=== PATIENT | female | born 1975 | race Caucasian/White ===

== ENCOUNTER 2024-11-19 08:46 | Emergency (ER) | payer OTHER, SELFPAY ==
[2024-11-19 09:03] VITALS: BP 130/78; PULSE 80; RESP 24; TEMP 36.3; O2SAT 97; BMI 24.6
--- NOTE | 2024-11-19 09:31 | ED.HA ---
HPI - Headache General Date Seen: 11/19/24 Chief Complaint: Headache/Migraine Stated Complaint: headache- nausea Time Seen by Provider: 11/19/24 09:20 Source: patient Mode of arrival: ambulatory Limitations: no limitations History of Present Illness HPI Narrative: Patient is a 49-year-old female presenting to the emergency department for a headache. She states the headache has been going on for the past few days. She feels like it is a tight band around her head. States she has had headaches like this in the past but has been several years. States it was so bad she had to leave work which she never does. Has had some photophobia. Has not noticed any tearing or rhinorrhea. Has not noticed any focal neurological issues. Denies lightheadedness, dizziness, chest pain, shortness of breath, weakness, numbness, abdominal pain. Has noted some nausea. Feels like symptoms are getting worse despite taking Tylenol and ibuprofen the home. No other concerns noted Related Data Home Medications ?Medication ?Instructions ?Recorded ?Confirmed norethindrone acetate 1 mg-ethinyl 1 tab PO DAILY 11/19/24 11/19/24 estradiol 20 mcg tablet (Junel) Previous Rx's ?Medication ?Instructions ?Recorded ondansetron 4 mg disintegrating 4 mg PO Q6H #20 tabs 11/19/24 tablet Allergies Allergy/AdvReac Type Severity Reaction Status Date / Time No Known Drug Allergies Allergy Verified 11/19/24 09:09 Review of Systems Status of ROS: Reports: 10 or more systems reviewed and unremarkable except as noted in History and below PFS PFS Social History Smoking Status: Never smoker How often do you have a drink containing alcohol: never AUDIT-C Alcohol total score: 0 Non-prescribed substance use: denies use Exam Narrative: Exam Narrative: Const: Well-nourished, Well-developed, in moderate distress Eyes: PERRL, no conjunctival injection, and symmetrical lids HENT: Atraumatic external nose and ears. Moist mucous membranes. Neck: Symmetric, trachea midline, No thyromegaly. CVS: RRR, No murmurs or gallops. Peripheral pulses 2+ and equal in all extremities RESP: Unlabored respiratory effort. Clear to auscultation bilaterally. GI: Nontender/Nondistended, No rebound or guarding. MSK:Extremities w/o deformity, Normal Active ROM Skin: Warm, Dry. No rashes or lesions. Neuro: Normal Muscle tone, Cranial nerves 2-12 grossly intact, normal lgcn-hg-sqxg, normal pelzoi-bc-smtm, normal gait, normal strength 5/5 upper lower extremities bilaterally, normal sensation upper and lower extremities bilaterally, normal rapid alternating movements. Psych: Awake, Alert, & Oriented x3. Appropriate mood and affect. Const: Vital Signs, click to edit/add: Vital Signs - 24 hr 11/19/24 09:03 Temperature 97.3 F L Pulse Rate [Pulse Oximeter] 80 Respiratory Rate 24 Blood Pressure [Ri t Upper Arm] 130/78 Pulse Oximetry 97 Oxygen Delivery Me thod Room Air Course Vital Signs Vital signs: Initial Vital Signs Temperature 97.3 F L 11/19/24 09:03 Temperature Source Temporal Artery Scan 11/19/24 09:03 Pulse Rate 80 11/19/24 09:03 Respiratory Rate 24 11/19/24 09:03 Blood Pressure 130/78 11/19/24 09:03 Blood Pressure Mean 95 11/19/24 09:03 Blood Pressure Position Sitting 11/19/24 09:03 Pulse Oximetry 97 11/19/24 09:03 Oxygen Delivery Method Room Air 11/19/24 09:03 Vital Signs Temperature 97.3 F L 11/19/24 09:03 Pulse Rate 80 11/19/24 09:03 Respiratory Rate 24 11/19/24 09:03 Blood Pressure 130/78 11/19/24 09:03 Pulse Oximetry 97 11/19/24 09:03 Oxygen Delivery Method Room Air 11/19/24 09:03 Temperature 97.3 F L 11/19/24 09:03 Pulse Rate 80 11/19/24 09:03 Respiratory Rate 24 11/19/24 09:03 Blood Pressure 130/78 11/19/24 09:03 Pulse Oximetry 97 11/19/24 09:03 Oxygen Delivery Method Room Air 11/19/24 09:03 Medications Administered Medications: Discontinued Medications Generic Name Dose Route Start Last Admin Trade Name Freq PRN Reason Stop Dose Admin Diphenhydramine HCl 25 mg 11/19/24 09:25 11/19/24 09:57 Diphenhydramine 50 Mg/Ml Inj IVP 11/19/24 09:26 25 mg ONCE ONE Administration Lactated Ringer's 1,000 mls @ 1,000 mls/hr 11/19/24 09:25 11/19/24 10:01 Lactated Ringers 1000 Ml IV 11/19/24 10:24 1,000 mls/hr .Q1H ONE Administration Ketorolac Tromethamine 15 mg 11/19/24 09:25 11/19/24 09:53 Ketorolac 15 Mg/Ml Inj IVP 11/19/24 09:26 15 mg ONCE ONE Administration Metoclopramide HCl 10 mg 11/19/24 09:25 11/19/24 09:55 Metoclopramide Hcl 5 Mg/Ml Inj IVP 11/19/24 09:26 10 mg ONCE ONE Administration MDM - Headache MDM Narrative Medical decision making narrative: Patient is a 49-year-old female presenting for headache. She has had headaches like this before but it has been awhile. Was a gradual-onset headache. My concern for subarachnoid hemorrhage is very low. At this time intracranial masses seems unlikely and I will hold off on doing head CT was start by giving her a migraine cocktail including fluids, Reglan, Toradol, Benadryl. She is agreeable to this plan. Patient is feeling much better after the migraine cocktail. She feels comfortable for discharge. She will be discharged at this time. Discharge Plan Discharge Clinical Impression: Headache Qualifiers: Headache type: unspecified Headache chronicity pattern: unspecified pattern Intractability: not intractable Qualified Code(s): R51.9 - Headache, unspecified Patient Disposition: Home, Self-Care Condition: Improved Instructions: Acute Headache (DC) Additional Instructions: Continue to use Tylenol ibuprofen as needed at home. Take the Zofran as needed for nausea. Make sure to stay well hydrated. Return to emergency department for new or worsening symptoms. Prescriptions: New ondansetron 4 mg tablet,disintegrating 4 mg PO Q6H Qty: 20 0RF No Action norethindrone ac-eth estradiol [08/26 (21)] 1-20 mg-mcg tablet 1 tab PO DAILY Follow Up/Referrals: Provider,Not a Local [Primary Care Provider] - Stand Alone Forms: [employer] Info Instructions
[2024-11-19] MEDS: KETOROLAC 15 MG/ML inj IVP (09:53)
[2024-11-19] MEDS: METOCLOPRAMIDE HCL 5 MG/ML INJ 10 MG IVP (09:55)
[2024-11-19] MEDS: diphenhydrAMINE 50 MG/ML inj 25 MG IVP (09:57)
[2024-11-19] MEDS: LACTATED RINGERS 1000 ML 1,000 ML IV (10:01)
--- OUTSIDE RECORDS SUMMARY | 2024-11-19 10:46 | XMS_ITS | Clinical Summary ---
Author Organization [facility] Address [address] [place] [address]. [place] [address] Care Team Providers Care Cdl Bulk Driver Name Role Phone Elisa Mandel PA-C Unavailable Maritza Mai MD Primary Care Provider + Allergies No known active allergies Medications gabapentin (NEURONTIN) 300 MG capsule Take 300 mg by mouth At Bedtime For hot flashes 02/08/2023 Active ondansetron (ZOFRAN ODT) 4 MG ODT tab Take 1 tablet (4 mg) by mouth every 8 hours as needed for nausea 10 tablet 04/29/2023 Active multivitamin w/minerals (MULTI-VITAMIN) tablet Take 1 tablet by mouth daily Active Active Problems Problem Noted Date Diagnosed Date SBO (small bowel obstruction) 03/28/2015 Family History Medical History Relation Comments Colon Cancer Maternal Grandmother Thyroid Disease Mother Colon Cancer Paternal Grandmother Relation Status Comments Maternal Grandmother Mother Paternal Grandmother Social History Tobacco Use Types Packs/Day Years Used Date Smoking Tobacco: Never Smokeless Tobacco: Never Tobacco Cessation:Counseling Given: Not Answered Alcohol Use Standard Drinks/Week Comments No 0 (1 standard drink = 0.6 oz pur e alcohol) Adolescent Education Answer Date Record ed Getting School Help Needed Not on file 04/29 Comments No Sex and Gender Information Value Date Recorded Sex Assigned at Female 05/19/2024 2:43 PM CDT Legal Sex Female 4:38 AM SIX SIGMA PROJECT MANAGER Gender Identity Female 05/19/2024 2:43 PM CDT Sexual Orientation Straight 05/19/2024 2: 43 PM CDT Last Filed Vital Signs Vital Sign Reading Time Taken Comments Blood Pressure 110/79 06/16/2023 4:05 PM SIX SIGMA PROJECT MANAGER Pulse 65 06/16/2023 4:05 PM SIX SIGMA PROJECT MANAGER Temperature 36.6 C (97.8 F) 06/16/2023 4:05 PM SIX SIGMA PROJECT MANAGER Respiratory Rate 15 06/16/2023 4:05 PM SIX SIGMA PROJECT MANAGER Oxygen Saturation 99% 06/16/2023 4:05 PM SIX SIGMA PROJECT MANAGER Inhaled Oxygen Concentration - - Weight 58.2 kg (128 lb 3.2 oz) 06/16/2023 12:38 PM SIX SIGMA PROJECT MANAGER Height 154.9 cm (5' 0.98) 06/16/2023 12:[address] Body Mass Index 24.24 06/16/2023 12:38 PM SIX SIGMA PROJECT MANAGER Plan of Treatment Health Maintenance Due Date Last Done Comments ANNUAL REVIEW OF HM ORDERS 1975 CT COLONOGRAPHY 1975 sDNA (Cologuard) 1975 COLONOSCOPY 1985 HIV SCREENING 1990 HEPATITIS C SCREENING 1993 FIT 06/08/2009 06/08/2008 COLORECTAL CANCER SCREENING 06/27/2013 FLEX SIG 06/27/2013 06/27/2008 LIPID 2015 YEARLY PREVENTIVE VISIT 12/23/2023 12/22/2022 COVID-19 Vaccine ( season) 2024 03/29/2021, 03/08/2021 INFLUENZA VACCINE (#1) 2024 PHQ-2 (once per calendar year) 2024 MAMMO SCREENING 05/10/2025 05/10/2023, 11/2022, 02/16/2022 ZOSTER IMMUNIZATION (1 of 2) 2025 PAP 04/13/2026 04/13/2023, 0902/2023, 04/13/2023 DIABETES SCREENING 04/29/2026 04/29/2023, 1 08/28/2016, 05/29/2015, Additional history exists ADVANCE CARE PLANNING 06/22/2028 06/22/2023 DTAP/TDAP/TD IMMUNIZATION (4 - Td or Tdap) 10/07/2031 10/06/2021, 10/30/2002, 10/20/1998, Additional history exists HEPATITIS B IMMUNIZATION Completed 007, 06/28/2006, 05/26/2006 HPV IMMUNIZATION Aged Out No longer e ligible based on patient's age to complete this topic MENINGITIS IMMUNIZATION Aged Out No l onger eligible based on patient's age to complete this topic Pneumococcal Vaccine: Pediatrics (0 to 5 Years) and At-Risk Patients (6 to 49 Years) Aged Out No longer eligible based on patient's age to complete this topic Procedures Procedure Name Priority Date/Time Associated Diagnosis Comments BASIC METABOLIC PANEL STAT 04/29/2023 4:13 PM CDT FLEXIBLE SIGMOIDOSCOPY Routine 8 12:55 PM SIX SIGMA PROJECT MANAGER OCCULT BLOOD STOOL STAT 06/08/2008 3: 59 AM SIX SIGMA PROJECT MANAGER from Last 3 Months or Most Recently Relevant to Health Maintenance Results * (ABNORMAL) Basic metabolic panel (04/29/2023 4:13 PM CDT) Sodium 139 136 - 145 mmol/L 04/29/2023 5:35 PM CDT [facility] Potassium 4.5 3.4 - 5.3 mmol/L 04/29/2023 5:35 PM CDT [facility] Chloride 103 98 - 107 mmol/L 04/29/2023 5:35 PM CDT [facility] Carbon Dioxide (CO2) 23 22 - 29 mmol/L 04/29/2023 5:35 PM CDT [facility] Anion Gap 13 7 - 15 mmol/L 04/29/2023 5:35 PM CDT [facility] Urea Nitrogen 12.9 6.0 - 20.0 mg/dL 04/29/2023 5:35 PM CDT [facility] Creatinine 0.72 0.51 - 0.95 mg/dL 04/29/2023 5:35 PM CDT [facility] Calcium 9.5 8.6 - 10.0 mg/dL 04/29/2023 5:35 PM CDT [facility] Glucose 178(H) 70 - 99 mg/dL 04/29/2023 5:35 PM CDT [facility] GFR Estimate >90 >60 mL/min/1.7 3m2 04/29/2023 5:35 PM CDT [facility] Blood STRUCTURE OF RIGHT UPPER LIMB / Unknown Venipuncture / Unknown 04/29/2023 4:13 PM CDT 04/29/2023 4:16 PM CDT us Lenore Hawley DO LAB - BLOOD ORDERABLE S Final Result [facility] [address] [facility] (Main level, no room number) [place] [address], [facility] [phone] * FLEXIBLE SIGMOIDOSCOPY (06/27/2008 12:55 PM SIX SIGMA PROJECT MANAGER) Flex Sig Endoscopy Patient Name: Ava Gibson Gender: F Procedure Date: 06/27/2008 12:55 PM Date of : 1975 Age: 32 Admit Type: Inpatient Attending MD: Esau Arceo MD Procedure: Flexible Sigmoidoscopy Indications: Established chronic ulcerative proctosigmoiditis Providers: Esau Arceo MD Referring MD: Billy Baires MD Medicines: Fentanyl (Sublimaze) IVP 100 mcgs, Versed (Midazolam) IVP 4 mgs Complications: No immediate complications Procedure: - Prior to the procedure, a History and Physical was performed, and patient medication allergies were reviewed. The patient is competent. The risks and benefits of the procedure and the sedation options and risks were discussed with the patient. All questions were answered and informed consent was obtained. Patient identification and proposed procedure were verified by the physician in the procedure room. Mental Status Examination: alert and oriented. Airway Examination: normal oropharyngeal airway and neck mobility. Respiratory Examination: clear to auscultation. CV Examination: normal. Prophylactic Antibiotics: The patient does not require prophylactic antibiotics. Prior Anticoagulants: The patient has taken no previous anticoagulant or antiplatelet agents. ASA Grade Assessment: II - A patient with mild systemic disease. After reviewing the risks and benefits, the patient was deemed in satisfactory condition to undergo the procedure. The anesthesia plan was to use moderate sedation / analgesia (conscious sedation). Immediately prior to administration of medications, the patient was re-assessed for adequacy to receive sedatives. The heart rate, respiratory rate, oxygen saturations, blood pressure, adequacy of pulmonary ventilation, and response to care were monitored throughout the procedure. The physical status of the patient was re-assessed after the procedure. After obtaining informed consent, the scope was passed under direct vision. The [id number] #[id number] was introduced through the anus and advanced to the sigmoid colon. The flexible sigmoidoscopy was accomplished without difficulty. The patient tolerated the procedure well. The quality of the prep was good. Findings: Diffuse, continuous moderately active colitis (erythema, friability) with only a few discrete areas of ulceration were found as far as the scope was advanced into the sigmoid colon. This area was biopsied with a cold forceps for histology and to help evaluate for CMV colitis. Impression: - Erythematous mucosa from rectum to sigmoid colon. - Known left-sided ulcerative colitis. Esau Arceo M.D. _ Esau Arceo MD Signed Date: 06/27/2008 1:26 PM Number of Addenda: 0 Note initiated on 06/27/2008 12:55 PM RADIOLOGY RESULTS Flex Sig RADIOLOGY RESULTS 06/27/2008 12:5 5 PM SIX SIGMA PROJECT MANAGER us Billy Baires DO PROCEDURES Final Resu lt RADIOLOGY RESULTS * Occult blood stool (06/08/2008 3:59 AM SIX SIGMA PROJECT MANAGER) Occult Blood Negative NEG MISYS 06/08/2008 3:59 AM SIX SIGMA PROJECT MANAGER 06/08/2008 3:51 AM SIX SIGMA PROJECT MANAGER us Jin Boyle MD LAB - STOOLS ORDERABLES Final Result [facility] from Last 3 Months or Most Recently Relevant to Health Maintenance Insurance [facility] CHOICE [facility] CHO[facility] Advance Directives For more information, please contact: [phone] Documents on File Type Date Recorded Patient Chronograph Operator Expl anation Advance Directives and Living Will 06/22/2023 Health Care Directiv e 11/23/2022 * Full Code (Latest Code Status on File) Date Activated Date Inactivated Comments 03/28/2015 2:52 PM 12/18/2019 12:49 PM * Full Code Date Activated Date Inactivated Comments 03/28/2015 12:07 AM 03/28/2015 2:52 PM Healthcare Agents on File Name Relationship Healthcare Agent Relationship Communication David Gibson Spouse Health Care Agent [email or web address] Elisa Fernandes Cousin First Alternate Health Care Agent Care Teams Cdl Bulk Driver Relationship Specialty [place] [address] [place] [address] PCP - General Family Medicine 04/29/23 Elisa Mandel PA-C [address] [facility] [place] [address] Physician Teletypewriter Operator Dermatology 11/15/21
--- OUTSIDE RECORDS SUMMARY | 2024-11-19 10:46 | XMS_ITS | Encounter Summary ---
Author Organization [facility] Address [address] [place] [address]. [place] [address] Care Team Providers Care Systems Software Manager Name Role Phone Elisa Mandel PA-C Unavailable [phone] Maritza Mai MD Primary Care Provider + Encounter Details Date Type Department Care Team (Late st Contact Info) Description 05/19/2024 MyC Medical Advice Initial Department Marycruz Tyson Social History Tobacco Use Types Packs/Day Years Used Date Smoking Tobacco: Never Smokeless Tobacco: Never Alcohol Use Standard Drinks/Week Comments No 0 (1 standard drink = 0.6 oz pur e alcohol) Adolescent Education Answer Date Record ed Getting School Help Needed Not on file 04/29 Comments No Sex and Gender Information Value Date Recorded Sex Assigned at Female 05/19/2024 2:43 PM CDT Legal Sex Female 4:38 AM AVIATION ELECTRONIC WARFARE OPERATOR Gender Identity Female 05/19/2024 2:43 PM CDT Sexual Orientation Straight 05/19/2024 2: 43 PM CDT documented as of this encounter Plan of Treatment Not on file documented as of this encounter Visit Diagnoses Not on filedocumented in this encounter Care Teams Systems Software Manager Relationship Specialty [place] [address] [place] [address] PCP - General Family Medicine 04/29/23 Elisa Mandel PA-C [address] [place] [address] [address] [facility] [place] [address] Physician Rental Car Deliverer Dermatology 11/15/21 documented as of this encounter
--- OUTSIDE RECORDS SUMMARY | 2024-11-19 10:46 | XMS_ITS | Encounter Summary ---
Author Organization [facility] Address [address] [place] [address]. [place] [address] Care Team Providers Care Regulatory Compliance Coordinator Name Role Phone Elisa Mandel PA-C Unavailable [...] PM CDT Legal Sex Female 4:38 AM BULLET SWAGING MACHINE OPERATOR Gender Identity Female 05/19/2024 2:43 PM CDT Sexual Orientation Straight 05/19/2024 2: 43 PM CDT documented as of this encounter Plan of Treatment Not on file documented as of this encounter Visit Diagnoses Not on filedocumented in this encounter Care Teams Regulatory Compliance Coordinator Relationship Specialty [place] [address] [place] [address] PCP - General Family Medicine 04/29/23 Elisa Mandel PA-C [address] [place] [address] [address] [facility] [place] [address] Physician Machine Heddle Cleaner Dermatology 11/15/21 documented as of this encounter
--- OUTSIDE RECORDS SUMMARY | 2024-11-19 10:46 | XMS_ITS | Clinical Summary ---
Author Organization [facility] Address [address] [place] [address] Care Team Providers Care Crane Hooker Name Role Phone Maritza Mai MD Primary Care Provider + [phone] Source Comments You are receiving this document as you are listed as the primary care provider,follow-up provider, or the patient has been referred to you for consultation.This is in compliance with the Medicare and[facility] EHR Incentive Program,which states Providers who transition their patient to another setting of careor provider of care or refers their patient to another provider of care shouldprovide summary care record for each transition of care or referral. [facility] Allergies No known active allergies Medications multivitamin with minerals (THERA M PLUS) tablet Take 1 Tablet by mouth daily. Active norethindrone-et hinyl estradiol (LOESTRIN) 1mg-20mcg tablet Take 1 Tablet by mouth daily. 84 Tablet 3 05/29/2024 5 Active Active Problems Problem Noted Date Diagnosed Date Hot flashes 05/29/2024 Cervical high risk human pap illomavirus (HPV) DNA test positive 12/22/2022 History of ulcerative colitis 10/06/2021 Overview (10/06/2021): hx colectomy H/O total colectomy 10/06/2021 Fibroid tumor 10/05/2018 Overview (12/22/2022): Last U/S 04/2022 -- stable. SBO (small bowel obstruction) 03/28/2015 Resolved Problems Problem Noted Date Diagnosed Date Resolved Date Female infertility 04/28/2010 Overview (03/29/2017): Infertility Female Attention to colostomy 03/02/200910/06 Overview (03/29/2017): Colostomy Closure Takedown s/p Ulcerative (chronic) proctitis 02/15/2005 10/06/2021 Overview (03/29/2017): Colitis Ulcerative Proctitis Migraine without aura 02/15/20052021 Overview (03/29/2017): Migraine Common Varicella 02/15/2005 09/30/2017 Overview (03/29/2017): LW Onset: childhood ; Varicella Zoster Immunizations Immunization Administration Dates Next Due HepA-HepB ([place], 18+ yrs) 11/28/2006,06/28/20 06,05/26/2006 MMR 10/20/1998,03/18/1993 Pfizer Monovalent 12+ Purple Top 03/29/2021,08/0 09/2020 Td 10/30/2002,10/20/1998,03/18/1993 Tdap 10/06/2021 Family History Medical History Relation Name Comments Heart Disease Father Chaparro of heart attack shoveling snow age 62 Cancer Mother saige paranoid cancer age 59 Alcohol Abuse Brother Cancer, Breast Maternal Aunt 1 Caprice br ca 50's Cancer, Breast Maternal Aunt 2 Pat br ca 50's Cancer Maternal Grandmother Earlene had col on cancer Cataract Maternal Grandmother Earlene Heart Disease Paternal Grandfather Justo o f congestive heart failure age 75 Cancer Paternal Grandmother Raquel had col on cancer Cataract Paternal Grandmother Raquel Cancer Paternal Uncle 1 Ludwig of sto mach cancer in his 40s Kidney/Bladder Disease Paternal Uncle 2 Madhav b ladder cancer now has a bag Kidney/Bladder Disease Paternal Uncle 3 cheryle b ladder cancer Relation Name Status Comments Father Chaparro Mother saige Brother Alive Maternal Aunt 1 Caprice Alive Maternal Aunt 2 Pat Alive Maternal Grandmother Earlene Paternal Grandfather Justo Paternal Grandmother Raquel Paternal Uncle 1 Ludwig Paternal Uncle 2 Madhav Paternal Uncle 3 cheryle Social History Tobacco Use Types Packs/Day Years Used Date Smoking Tobacco: Never Smokeless Tobacco: Never Tobacco Cessation:Counseling Given: Not Answered Alcohol Use Standard Drinks/Week Comments No 0 (1 standard drink = 0.6 oz pur e alcohol) PHQ-2 Answer Date Recorded PHQ-2 Score 0 02/21/2024 Financial Resource Strain Answer Date R ecorded Is it hard for you to pay fo r the very basics like food, housing, medical care or heating? No 02/18/2024 Food Insecurity Answer Date Recorded Does your food run out before you have the money to buy more? No 02/18/2024 Transportation Needs Answer Date Record ed Does a lack of transportatio n keep you from your medical appointments or from getting your medications? No 024 Comments No Sex and Gender Information Value Date Recorded Sex Assigned at Female 08/28/2021 4:43 PM MAGNETIC LOCATER Legal Sex Female 9:34 AM CDT Gender Identity Female 08/28/2021 4:43 PM MAGNETIC LOCATER Sexual Orientation Straight 08/28/2021 4: 43 PM MAGNETIC LOCATER Last Filed Vital Signs Vital Sign Reading Time Taken Comments Blood Pressure 102/72 05/30/2024 8:45 AM CDT Pulse 77 05/30/2024 8:45 AM CDT Temperature 36.6 C (97.9 F) 09/02/2010 3:16 PM MAGNETIC LOCATER ORAL C: 36.6 C Respiratory Rate - - Oxygen Saturation - - Inhaled Oxygen Concentration - - Weight 57.5 kg (126 lb 12.8 oz) 05/30/2024 8:45 AM CDT Height 155.6 cm (5' 1.26) 05/30/2024 8 :45 AM CDT Body Mass Index 23.76 05/30/2024 8:45 AM CDT Plan of Treatment Health Maintenance Due Date Last Done Comments COVID-19 Vaccine ( season) 2024 03/29/2021, 03/08/2021 Influenza (#1) 2024 Adult Preventive Visit 02/20/2025 , 12/22/2022, 10/06/2021 Prediabetes: HGBA1C 02/20/2025 02/21/2024, Mammogram 05/13/2025 05/13/2024, 11/2022, 02/16/2022 Zoster/Shingles (1 of 2) 2025 Cervical Cancer Screening 02/20/20272023, 02/21/2024, 04/13/2023, Additional history exists Cholesterol 12/23/2027 12/22/2022, 09/2021, 04/20/2010, Additional history exists DTaP/Tdap/Td (3 - Tdap) 10/07/2031 10/07/19, 10/30/2002, 10/20/1998, Additional history exists HepA Completed 11/28/2006, 06/08, 05/26/2006 HepB Completed 11/28/2006, 06/08, 05/26/2006 HIV Screening (Preventive Services) Completed 10/06/2021 Hep C Screening (Preventive Services) Completed 12/22/2022 Hib Aged Out No longer eligi ble based on patient's age to complete this topic IPV (Polio) Aged Out No longer eligi ble based on patient's age to complete this topic MCV4 Aged Out No longer eligi ble based on patient's age to complete this topic Meningococcal B Aged Out No longer el igible based on patient's age to complete this topic Pneumococcal Aged Out No longer eligi ble based on patient's age to complete this topic Procedures Procedure Name Priority Date/Time Associated Diagnosis Comments MM MAMMOGRAM SCREENING BILAT W 3D DONNIE W CAD Routine 05/13/2024 1:26 PM CDT HGB A1C Routine 02/21/2024 10:48 AM CDT Prediabetes CYTOLOGY (PAP) Routine 02/21/2024 10:40 AM CDT Screening for malignant neoplasm of cervix HEPATITIS C ANTIBODY, WITH REFLEX Routine 12/22/2022 9:22 AM CDT Need for hepatitis C screening test LIPID PANEL & DIRECT LDL (IF NEEDED) Routine 12/22/2022 9:22 AM CDT Weight gain HIV 1/2 AG/AB 4TH GEN Routine 10/06/2021 12:42 PM MAGNETIC LOCATER Annual physical exam from Last 3 Months or Most Recently Relevant to Health Maintenance Results * MM Mammogram Screening Bilat W 3D Donnie W CAD (05/13/2024 1:26 PM CDT) Anatomical Region Laterality Modality Breast Bilateral Mammography Impressions 05/13/2024 1:48 PM CDT : ACR BI-RADS Category 1: Negative RECOMMENDATION: Follow Up Imaging in 12 months - Bilateral The results and recommendations of this examination will be communicated to the patient. Narrative 05/13/2024 1:48 PM CDT MM MAMMOGRAM SCREENING BILAT W 3D DONNIE W CAD performed on 05/13/24 FDA Accredited Facility: [place] [address] Compared to: 05/10/2023 MM Mammogram Screening Bilat W 3D Donnie W CAD and 02/16/2022 MM Mammogram Screening Bilat W CAD FINDINGS: Bilateral screening mammogram was performed with the assistance of Computer-Aided Detection and breast tomosynthesis. The breasts are heterogeneously dense, which may obscure small masses. There is no radiographic evidence of malignancy. us Maritza Mai MD RAD KINDRA Final Result * Hgb A1C (02/21/2024 10:48 AM CDT) Hemoglobin A1C (Rapid) 5.6 <=5.6 % 02/21/2024 11:52 AM T [facility] Estimated Average Glucose (Calc) 114 < 117 mg/dL 02/21/2024 11:[address] [facility] Comment:Estimated average gl ucose (eAG) converts A1c into glucose units (mg/dL) and estimates average glucose over the past approximately 3 months. The eAG reference interval (<117 mg/dL) corresponds to an A1c of <5.7%. Blood Venipuncture / Unknown 02/21/2024 10:48 AM CDT 02/21/2024 10:48 AM CDT Narrative [facility] - 02/21/2024 11:52 AM CDT The test method used for this Hemoglobin A1c result can experience interference from elevated hemoglobin and other hemoglobin variants. In patients with results that do not correlate clinically, contact the lab for further direction. us Maritza Mai MD LAB_1 Final Result [facility] [address] [place] [address] * PAP Test (02/21/2024 10:40 AM CDT) Case Report Pap Case: [id number] Authorizing Provider: Maritza Mai MD Collected: 02/21/2024 1040 Ordering Location: [facility] Received: 02/21/2024 1128 First Screen: SLAVA LEONG Rescreen: Pebbles May, CT (ASCP) Specimen: Pap Test, Routine, Cervix/Endocervix 03/22/2024 2:11 PM CDT [facility] Pap Specimen Adequacy Satisfactory for evaluation, endocervical/sarakr sformation zone component absent. 03/22/2024 2:11 PM CDT [facility] Pap Interpretation (NILM) Negative for intraepithelial lesion or malignancy. 03/22/2024 2:11 PM CDT [facility] at 1411 CDT Pap Disclaimer The Pap test is a screening test to aid in the detection of cervical and vaginal cancers and their precursor lesions. It is not a diagnostic procedure and should not be used as the sole means of detecting malignancy. Both false-positive and false-negative results may occur. 03/22/2024 2:11 PM CDT [facility] Gross Description The specimen is received in SurePath fixative and properly labeled. 1 Pap-stained SurePath slide is prepared. 03/22/2024 2:11 PM CDT [facility] Embedded Images 2:11 PM CDT [facility] Other Specimen Type ENTIRE ENDOCERVIX / Unknown 02/21/2024 10:40 AM CDT 02/21/2024 11:28 AM CDT Comment:LMP: No LMP recorded . Patient is postmenopausal. Maritza Mai MD LAB PATHOLOGY Final Result [facility] [address] * Lipid Panel and Direct LDL(If Needed) (12/22/2022 9:22 AM CDT) Pathologist [facility] Cholesterol 181 0 - 199 mg/dL 12/22/2022 10:[address] [facility] Triglyceride 116 <=149 mg/dL 12/22/2022 10:[address] [facility] HDL Cholesterol 60 >=40 mg/dL 12/22/2022 10:[address] [facility] LDL, Calculated 98 <130 mg/dL 12/22/2022 10:[address] [facility] Non HDL Chol, Calculated 121 <=159 mg/dL 12/22/2022 10:[address] [facility] Cholesterol/HDL Ratio 3.0 12/22/2022 10:[address] [facility] Hours Fasting Unknown 12/22/2022 10:[address] [facility] Blood Venipuncture / Unknown 12/22/2022 9:22 AM CDT 12/22/2022 9:22 AM CDT Maritza Mai MD LAB_1 Final Result [facility] [address] [place] [address] [phone] * Hepatitis C Antibody, with Reflex (12/22/2022 9:22 AM CDT) Pathologist [facility] Hepatitis C Antibody Negative (Non Reactive) Negative (Non Reactive) 12/22/2022 3:52 PM CDT [facility] Comment:Antibodies to HCV no t detected. Does not exclude the possiblity of exposure to HCV. Blood Venipuncture / Unknown 12/22/2022 9:22 AM CDT 12/22/2022 9:22 AM CDT Maritza Mai MD LAB_1 Final Result Performing Organization Address [facility] de Phone Number [facility] [address] [place] [address] * HIV 1/2 Ag/Ab 4th Generation (10/06/2021 12:42 PM MAGNETIC LOCATER) [facility] HIV 1/2 Antigen/Antib vidya (4th generation) Negative (Non Reactive) Negative (Non Reactive) 10/06/2021 9:52 PM MAGNETIC LOCATER [facility] Comment:HIV-1 p24 Antigen an d HIV-1/HIV-2 Antibody not detected Blood Venipuncture / Unknown 10/06/2021 12:42 PM MAGNETIC LOCATER 10/06/2021 12:42 PM MAGNETIC LOCATER Maritza Mai MD LAB_1 Final Result Performing Organization Address [facility] Phone Number [facility] [address] [place] [address] from Last 3 Months or Most Recently Relevant to Health Maintenance Insurance [facility] [place] [address] [facility] Member Subscriber Plan / Payer (Ef fective 2024-Present) Name:Ava Gibson Relation to Subscriber:Self Name:Ava Gibson Payer ID:Not on file Type:Commercial Address: [address] [address] Advance Directives Documents on File Type Date Recorded 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
== END 2024-11-19 11:12 | disposition home or self-care (01) ==
PROVIDERS: Emergency Provider Student in an Organized Health Care Education/Training Program
DX: R51.9 Headache, unspecified (principal)
CPT/HCPCS: 96361; 96374; 96375; 99284; J1200; J1885; J2765; J7120

== ENCOUNTER 2025-03-31 10:31 | Emergency (ER) | payer OTHER, SELFPAY ==
[2025-03-31 10:34] VITALS: BP 120/75; PULSE 84; RESP 18; TEMP 36.7; O2SAT 97
--- OUTSIDE RECORDS SUMMARY | 2025-03-31 10:34 | XMS_ITS | Encounter Summary ---
Author Organization [facility] Address [address] [place] [address]. [place] [address] Care Team Providers Care Medicare Compliance Auditor Name Role Phone Elisa Mandel PA-C Unavailable [...] PM CDT Legal Sex Female 4:38 AM CAR BRACER Gender Identity Female 05/19/2024 2:43 PM CDT Sexual Orientation Straight 05/19/2024 2: 43 PM CDT documented as of this encounter Plan of Treatment Not on file documented as of this encounter Visit Diagnoses Not on filedocumented in this encounter Care Teams Medicare Compliance Auditor Relationship Specialty [place] [address] [place] [address] PCP - General Family Medicine 04/29/23 Elisa Mandel PA-C [address] [place] [address] [address] [facility] [place] [address] Physician Re Dye Hand Dermatology 11/15/21 documented as of this encounter
--- OUTSIDE RECORDS SUMMARY | 2025-03-31 10:34 | XMS_ITS | Encounter Summary ---
Author Organization [facility] Address [address] [place] [address]. [place] [address] Care Team Providers Care Key Bed Installer Name Role Phone Elisa Mandel PA-C Unavailable [...] PM CDT Legal Sex Female 4:38 AM STRAP MAKER Gender Identity Female 05/19/2024 2:43 PM CDT Sexual Orientation Straight 05/19/2024 2: 43 PM CDT documented as of this encounter Plan of Treatment Not on file documented as of this encounter Visit Diagnoses Not on filedocumented in this encounter Care Teams Key Bed Installer Relationship Specialty [place] [address] [place] [address] PCP - General Family Medicine 04/29/23 Elisa Mandel PA-C [address] [place] [address] [address] [facility] [address] Physician Side Seam Machine Operator Dermatology 11/15/21 documented as of this encounter
--- OUTSIDE RECORDS SUMMARY | 2025-03-31 10:34 | XMS_ITS | Clinical Summary ---
Author Organization [facility] Address [address] [place] [address]. [place] [address] Care Team Providers Care Ground Products Director Name Role Phone Elisa Mandel PA-C Unavailable [phone] Maritza Mai MD Primary Care Provider + [...] PM CDT Legal Sex Female 4:38 AM PEWTER FABRICATOR Gender Identity Female 05/19/2024 2:43 PM CDT Sexual Orientation Straight 05/19/2024 2: 43 PM CDT Last Filed Vital Signs Vital Sign Reading Time Taken Comments Blood Pressure 110/79 06/16/2023 4:05 PM PEWTER FABRICATOR Pulse 65 06/16/2023 4:05 PM PEWTER FABRICATOR Temperature 36.6 C (97.8 F) 06/16/2023 4:05 PM PEWTER FABRICATOR Respiratory Rate 15 06/16/2023 4:05 PM PEWTER FABRICATOR Oxygen Saturation 99% 06/16/2023 4:05 PM PEWTER FABRICATOR Inhaled Oxygen Concentration - - Weight 58.2 kg (128 lb 3.2 oz) 06/16/2023 12:38 PM PEWTER FABRICATOR Height 154.9 cm (5' 0.98) 06/16/2023 12:[address] Body Mass Index 24.24 06/16/2023 12:38 PM PEWTER FABRICATOR Plan of Treatment Health Maintenance Due Date Last Done Comments ANNUAL REVIEW OF HM ORDERS 1975 CT COLONOGRAPHY 1975 sDNA (Cologuard) 1975 COLONOSCOPY 1985 HIV SCREENING 1990 HEPATITIS C SCREENING 1993 FIT 06/08/2009 06/08/2008 COLORECTAL CANCER SCREENING 06/27/2013 FLEX SIG 06/27/2013 06/27/2008 LIPID 2015 YEARLY PREVENTIVE VISIT 12/23/2023 12/22/2022 COVID-19 VACCINE ( season) 2024 03/29/2021, 03/08/2021 PHQ-2 (once per calendar year) 2024 INFLUENZA VACCINE (#1) 2025 MAMMO SCREENING 05/10/2025 05/10/2023, 11/2022, 02/16/2022 ZOSTER VACCINE (1 of 2) 2025 PAP 04/13/2026 04/13/2023, 02/2023, 04/13/2023 DIABETES SCREENING 04/29/2026 04/29/2023, 1 08/28/2016, 05/29/2015, Additional history exists ADVANCE CARE PLANNING 06/22/2028 06/22/2023 DTAP/TDAP/TD VACCINE (4 - Td or Tdap) 10/07/2031 10/06/2021, 10/30/2002, 10/20/1998, Additional history exists HEPATITIS B VACCINE Completed 11/28/2006, 06/28/2006, 05/26/2006 HPV VACCINE (No Doses Required) Completed MENINGITIS VACCINE Aged Out No longer eligible based on patient's age to complete this topic PNEUMOCOCCAL VACCINE: PEDIATRICS (0 to 5 YEARS) AND AT-RISK PATIENTS (6 to 49 YEARS) Aged Out No longer eligible based on patient's age to complete this topic Procedures Procedure Name Priority Date/Time Associated Diagnosis Comments BASIC METABOLIC PANEL STAT 04/29/2023 4:13 PM CDT FLEXIBLE SIGMOIDOSCOPY Routine 8 12:55 PM PEWTER FABRICATOR OCCULT BLOOD STOOL STAT 06/08/2008 3: 59 AM PEWTER FABRICATOR from Last 3 Months or Most Recently [...] CDT 04/29/2023 4:16 PM CDT us Lenore Brittany Hawley DO LAB - BLOOD ORDERABLE S Final Result [facility] [address] [facility] (Main level, no room number) [place] [address], [facility] [phone] * FLEXIBLE SIGMOIDOSCOPY (06/27/2008 12:55 PM PEWTER FABRICATOR) Flex Sig Endoscopy Patient Name: Ava Gibson [...] was passed under direct vision. The [id number] #[id number] was introduced through the anus and advanced [...] Sig RADIOLOGY RESULTS 06/27/2008 12:5 5 PM PEWTER FABRICATOR us Billy Baires DO PROCEDURES Final Resu lt RADIOLOGY RESULTS * Occult blood stool (06/08/2008 3:59 AM PEWTER FABRICATOR) Occult Blood Negative NEG MISYS 06/08/2008 3:59 AM PEWTER FABRICATOR 06/08/2008 3:51 AM PEWTER FABRICATOR us Jin Boyle MD LAB - STOOLS ORDERABLES Final Result MISYS from Last 3 Months or Most Recently Relevant to Health Maintenance Insurance [facility] [place] [address] Advance Directives For more information, please contact: [phone] Documents on File Type Date Recorded Patient Hand Inserter Operator Expl anation Advance Directives and Living Will 06/22/2023 Health Care Directiv e 11/23/2022 * Full Code (Latest Code Status on File) Date Activated Date Inactivated Comments 03/28/2015 2:52 PM 12/18/2019 12:49 PM * Full Code Date Activated Date Inactivated Comments 03/28/2015 12:07 AM 03/28/2015 2:52 PM Healthcare Agents on File Name Relationship Healthcare Agent Relationship Communication David Gibson Spouse Health Care Agent [phone] (Home) [email or web address] Elisagary Fernandes Cousin First Alternate Health Care Agent Care Teams Ground Products Director Relationship Specialty [place] [address] [place] [address] PCP - General Family Medicine 04/29/23 Elisa Mandel PA-C [address] [facility] [place] [address] Physician Sash Repairer Dermatology 11/15/21
--- OUTSIDE RECORDS SUMMARY | 2025-03-31 10:34 | XMS_ITS | Clinical Summary ---
Author Organization [facility] Address [address] [place] [address] Care Team Providers Care Data Management Consultant Name Role Phone Maritza Mai MD Primary Care Provider + [phone] Source Comments You are receiving this document as you are listed as the primary care provider,follow-up provider, or the patient has been referred to you for consultation.This is in compliance with the Medicare and[facility] EHR Incentive Program,which states Providers who transition [...] Sex Assigned at Female 08/28/2021 4:43 PM CRANBERRY SORTER Legal Sex Female 9:34 AM CDT Gender Identity Female 08/28/2021 4:43 PM CRANBERRY SORTER Sexual Orientation Straight 08/28/2021 4: 43 PM CRANBERRY SORTER Last Filed Vital Signs Vital Sign Reading Time Taken Comments Blood Pressure 102/72 05/30/2024 8:45 AM CDT Pulse 77 05/30/2024 8:45 AM CDT Temperature 36.6 C (97.9 F) 09/02/2010 3:16 PM CRANBERRY SORTER ORAL C: 36.6 C Respiratory Rate - - Oxygen Saturation - - Inhaled Oxygen Concentration - - Weight 57.5 kg (126 lb 12.8 oz) 05/30/2024 8:45 AM CDT Height 155.6 cm (5' 1.26) 05/30/2024 8 :45 AM CDT Body Mass Index 23.76 05/30/2024 8:45 AM CDT Plan of Treatment Upcoming Encounters Date Type Department Care Team (Late st Contact Info) Description 04/16/2025 11:00 AM CDT Appointment [facility] [address] [facility] [place] [address] [place] [address] [address] Health Maintenance Due Date Last Done Comments COVID-19 Vaccine ( season) 2024 03/29/2021, 03/08/2021 Adult Preventive Visit 02/20/2025 , 12/22/2022, 10/06/2021 Prediabetes: HGBA1C 02/20/2025 02/21/2024, Influenza Vaccine (#1) 2025 Mammogram 05/13/2025 05/13/2024, 11/2022, 02/16/2022 Zoster/Shingles Vaccine (1 of 2) 2025 Cervical Cancer Screening 02/20/20272023, 02/21/2024, 04/13/2023, Additional history exists Cholesterol 12/23/2027 12/22/2022, 09/2021, 04/20/2010, Additional history exists DTaP/Tdap/Td Vaccine (3 - Tdap) 10/07/2031 10/06/2021, 10/30/2002, 10/20/1998, Additional history exists HepA Vaccine Completed 11/28/2006, 06/08, 05/26/2006 HepB Vaccine Completed 11/28/2006, 06/08, 05/26/2006 HIV Screening (Preventive Services) Completed 10/06/2021 Hep C Screening (Preventive Services) Completed 12/22/2022 Hib Vaccine Aged Out No longer eligi ble based on patient's age to complete this topic IPV (Polio) Vaccine Aged Out No longe r eligible based on patient's age to complete this topic MCV4 Vaccine Aged Out No longer eligi ble based on patient's age to complete this topic Meningococcal B Vaccine Aged Out No l onger eligible based on patient's age to complete this topic Pneumococcal Vaccine Aged Out No long er eligible based on patient's age to complete this topic Procedures Procedure Name Priority Date/Time Associated Diagnosis Comments MM MAMMOGRAM SCREENING BILAT W 3D DONNIE W CAD Routine 05/13/2024 1:26 PM CDT HGB A1C Routine 02/21/2024 10:48 AM CDT Prediabetes CYTOLOGY (PAP) Routine 02/21/2024 10:40 AM CDT Screening for malignant neoplasm of cervix HEPATITIS C ANTIBODY, WITH REFLEX (ANTI-HCV) Routine 12/22/2022 9:22 AM CDT Need for hepatitis C screening test LIPID PANEL & DIRECT LDL (IF NEEDED) Routine 12/22/2022 9:22 AM CDT Weight gain HIV 1/2 AG/AB 4TH GEN Routine 10/06/2021 12:42 PM CRANBERRY SORTER Annual physical exam from Last 3 Months [...] CAD performed on 05/13/24 FDA Accredited Facility: [place] [address] Compared to: 05/10/2023 MM Mammogram Screening Bilat [...] (Rapid) 5.6 <=5.6 % 02/21/2024 11:[address] [facility] Estimated Average Glucose (Calc) 114 < 117 mg/dL 02/21/2024 11:[address] [facility] Comment:Estimated average gl ucose (eAG) converts A1c into glucose units (mg/dL) and estimates average glucose over the past approximately 3 months. The eAG reference interval (<117 mg/dL) corresponds to an A1c of <5.7%. Blood Venipuncture / Unknown 02/21/2024 10:48 AM CDT 02/21/2024 10:48 AM CDT Narrative [facility] - 02/21/2024 11:52 AM CDT The test method used for this Hemoglobin A1c result can experience interference from elevated hemoglobin and other hemoglobin variants. In patients with results that do not correlate clinically, contact the lab for further direction. us Maritza Mai MD LAB_1 Final Result Performing Organization Address City/State/[facility] Co de Phone Number [facility] [address] [place] [address] * PAP Test (02/21/2024 10:40 AM CDT) Pathologist [facility] Case Report Pap Case: [id number] Authorizing Provider: Maritza Mai MD Collected: 02/21/2024 1040 Ordering Location: [facility] Received: 02/21/2024 1128 First Screen: SLAVA LEONG X Rescreen: Pebbles May E, CT (ASCP) Specimen: Pap Test, Routine, Cervix/Endocervix 03/22/2024 2:11 PM CDT [facility] Pap Specimen Adequacy Satisfactory for evaluation, endocervical/sarkar sformation zone component absent. 03/22/2024 2:11 PM CDT [facility] Pap Interpretation (NILM) Negative for intraepithelial lesion or malignancy. 03/22/2024 2:11 PM CDT [facility] at 1411 CDT Pap Disclaimer The Pap test is a screening test to aid in the detection of cervical and vaginal cancers and their precursor lesions. It is not a diagnostic procedure and should not be used as the sole means of detecting malignancy. Both false-positive and false-negative results may occur. 03/22/2024 2:11 PM CDT [facility] Gross Description The specimen is received in SurePath fixative and properly labeled. 1 Pap-stained SurePath slide is prepared. 03/22/2024 2:11 PM CDT [facility] Embedded Images 2:11 PM CDT [facility] Other Specimen Type ENTIRE ENDOCERVIX / Unknown 02/21/2024 10:40 AM CDT 02/21/2024 11:28 AM CDT Comment:LMP: No LMP recorded . Patient is postmenopausal. us Maritza Mai MD LAB PATHOLOGY Final Result Performing Organization Address City/State/[facility] de Phone Number [facility] [address] * Lipid Panel and Direct LDL(If Needed) (12/22/2022 9:22 AM CDT) Cholesterol 181 0 - 199 mg/dL 12/22/2022 10:54 AM [facility] Triglyceride 116 <=149 mg/dL 12/22/2022 10:54 AM [facility] HDL Cholesterol 60 >=40 mg/dL 12/22/2022 10:54 AM [facility] LDL, Calculated 98 <130 mg/dL 12/22/2022 10:54 AM [facility] Non HDL Chol, Calculated 121 <=159 mg/dL 12/22/2022 10:54 AM [facility] Cholesterol/HDL Ratio 3.0 12/22/2022 10:54 AM [facility] Hours Fasting Unknown 12/22/2022 10:54 AM [facility] Blood Venipuncture / Unknown 12/22/2022 9:22 AM CDT 12/22/2022 9:22 AM CDT us Maritza Mai MD LAB_[address] Final [address] [facility] [address] [place] [address], [facility] [phone] * Hepatitis C Antibody, with Reflex (12/22/2022 9:22 AM CDT) Hepatitis C Antibody Negative (Non Reactive) Negative (Non Reactive) 12/22/2022 3:52 PM CDT [facility] Comment:Antibodies to HCV no t detected. Does not exclude the possiblity of exposure to HCV. Blood Venipuncture / Unknown 12/22/2022 9:22 AM CDT 12/22/2022 9:22 AM CDT Maritza Mai MD LAB_1 Final Result Performing Organization Address [facility] Co de Phone Number [facility] [address] * HIV 1/2 Ag/Ab 4th Generation (10/06/2021 12:42 PM CRANBERRY SORTER) Pathologist [facility] HIV 1/2 Antigen/Antib vidya (4th generation) Negative (Non Reactive) Negative (Non Reactive) 10/06/2021 9:52 PM CRANBERRY SORTER [facility] Comment:HIV-1 p24 Antigen an d HIV-1/HIV-2 Antibody not detected Blood Venipuncture / Unknown 10/06/2021 12:42 PM CRANBERRY SORTER 10/06/2021 12:42 PM CRANBERRY SORTER Maritza Mai MD LAB_1 Final Result Performing Organization Address City/[facility] Co de Phone Number [facility] [address] from Last 3 Months or Most Recently Relevant to Health Maintenance Insurance [employer] Member Subscriber Plan / Payer ( fective 2024-Present) Name:Ava Gibson Relation to Subscriber:Self Name:vAa Gibson Payer ID:Not on file Type:Commercial Address: [address] Advance Directives Documents on File Type Date Recorded Patient Pathology Laboratory Director Expl anation HEALTHCARE DIRECTIVE 11/23/2022 David Gibson [facility] ARE DIRECTIVE 11/23/2022 Healthcare Agents on File Name Relationship Healthcare [facility] David Texreta Spouse Health Care Agent [email or web address] Care Teams Data Management Consultant Relationship Specialty [place] [address] [address] PCP - General Family Practice 12/14/22
--- NOTE | 2025-03-31 10:42 | ED.ABDPAIN ---
HPI - Abdominal Pain General Time Seen by Provider: 10:42 Date Seen: 03/31/25 Chief Complaint: Abdominal Pain Stated Complaint: blockage - abdominal pain, vomiting Time Seen by Provider: 03/31/25 10:41 Source: patient and RN notes reviewed Mode of arrival: ambulatory Limitations: no limitations History of Present Illness HPI narrative: This 49-year-old female is coming in with concern of bowel obstruction. She states she has had many before. She has had total colectomy. She does not have a colostomy, she states they ended up doing a J-pouch. Usually she will have multiple stools a day because of the J-pouch being smaller. She had ulcerative colitis requiring the colectomy. She has not noted any fevers. Yesterday afternoon she started noticing the discomfort, she has started having nausea and vomiting but no fevers. She stopped eating when she started feeling symptoms that were consistent with some obstruction going on, just went to clear liquids. She states that she will frequently have episodes like that that she will just get through 1 clear liquids and manage at home. She however has bouts of increasing abdominal pain when she feels her bowels fidel. Right now she is not having much pain. She is concerned as this seems to be not resolving and she is having recurrent vomiting that concerns her for bowel obstruction. She is passing a little stool but it is different, not like she normally would and is diminished certainly. She has not had any recent surgery, this history of surgery was years ago, she believes it was at [facility]. Related Data Home Medications ?Medication ?Instructions ?Recorded ?Confirmed norethindrone acetate 1 mg-ethinyl 1 tab PO DAILY 11/19/24 11/19/24 estradiol 20 mcg tablet (Junel) Previous Rx's ?Medication ?Instructions ?Recorded ondansetron 4 mg disintegrating 4 mg PO Q6H #20 tabs 11/19/24 tablet Allergies Allergy/AdvReac Type Severity Reaction Status Date / Time No Known Drug Allergies Allergy Verified 03/31/25 12:14 Review of Systems Status of ROS Reports: 6 or more systems reviewed and unremarkable except as noted in History and below PFS PFS Social History Smoking Status: Never smoker How often do you have a drink containing alcohol: never AUDIT-C Alcohol total score: 0 Non-prescribed substance use: denies use service: No Exam Const: Vital Signs, click to edit/add: Vital Signs - 24 hr 03/31/25 10:34 03/31/25 10:54 03/31/25 19:22 Temperature 98.1 F Pulse Rate [Pulse Oximeter] 84 80 Respiratory Rate 18 16 Blood Pressure [Ri ght Upper Arm] 120/75 99/66 Pulse Oximetry 97 97 96 Oxygen Delivery Me thod Room Air Room Air This 49-year-old female is alert, interactive, no apparent distress, lying flat on the ER bed in exam room 1. She looks uncomfortable, does have an emesis bag. Sclera clear, face atraumatic, speak in complete sentences. Lips not cracked or dry. Lungs are clear, no wheeze or crackles, no tachypnea. CV regular rate and rhythm, no murmur. Abdomen is soft, not with any significant distension, do hear faint occasional bowel sounds. She is not really tender, no rebound or guarding, no organomegaly. She has many scars on her abdomen that are well healed. Documenting provider has reviewed patient's vital signs: yes Course Course ED Course: Patient is experiencing symptoms concerning for bowel obstruction. Will place an IV, give her some IV fluids and Zofran. She is declining anything for pain management at this time, will let me know if this changes. Will get baseline labs. We will order CT of her abdomen pelvis with IV contrast for visualization of intra-abdominal contents. This will let us know if there is concern for bowel obstruction or other etiologies. Reevaluation(s) Time of Reevaluation #1: 12:55 Reevaluation #1: Have reviewed with patient her CT findings; did discuss that she may need surgery, need to discuss with our surgeon. Have confirmed her surgical history: colectomy with colostomy 2007; had reversal of colostomy and J pouch done in 2008 at [facility]. She has had bowel obstructions managed with scoping and dilation of an internal stricture/scarring site. Dr. Jessy Millard colorectal surgery has taken care of this. Time of Reevaluation #2: 13:50 Reevaluation #2: Patient requesting pain medicine now, will start with Toradol, move to narcotics if needed. Time of Reevaluation #3: 15:08 Reevaluation #3: Have reviewed with patient that she is being transferred to [facility]. She has in the into room passed some stool. I stated this is reassuring but given the CT findings, I do think she needs to be further evaluated by Colorectal surgery. We will plan on transferring her to [facility]. I have reviewed with her the lack of bed capacity at [facility] system. Additional Reevaluation(s): 4:14 p.m.: Patient needing something further for pain management, will give 50 mcg IV fentanyl. Have written for maintenance fluid, p.r.n. fentanyl, p.r.n. Zofran. [facility] may have up to an 8 hour bed delay, will sign this patient out to oncoming provider. Consultations Consultation #1: Dr. Vann was called, she is in the OR involved in a case; she will call back after she is done. 1:34 p.m.: Have reviewed the case with Dr. Vann. She agrees that this patient should transfer, is beyond the scope of what should be managed here. I did subsequently call and leave a message for her surgeon through [facility] Dr. Millard. We have talked to [facility] transfer system, they currently do not have bed availability. Will wait to talk to her personal colorectal surgeon but will also look at [facility] system at this time. Time: 13:02 Consultation #2: Did speak with Dr. Hall from [facility]. She actually is in the group with Dr. Millard. She has seen the CT, she is going to call Dr. Millard and see with they can work out for this patient. She believes that patient should be with colorectal, would like to get her to [facility] if possible with her primary colorectal surgeon. She will be calling me back. 3:01 p.m.: Dr. Hall did call back. [facility] is not likely to have any bed capacity within the next 1-2 days. She accepts on behalf of [facility]. We will need to call the transfer center and talk to the hospitalists for a general [facility] bed. 3:29 p.m.: Spoke with the hospitalist Dr. Archibald. He was given patient's history, he accepts on behalf of Dr. Hall. We will wait for nurse to nurse report and bed placement before transfer. Time: 14:21 Vital Signs Vital signs: Initial Vital Signs Temperature 98.1 F 03/31/25 10:34 Temperature Source Temporal Artery Scan 03/31/25 10:34 Pulse Rate 84 03/31/25 10:34 Pulse Rhythm Regular 03/31/25 10:34 Respiratory Rate 18 03/31/25 10:34 Blood Pressure 120/75 03/31/25 10:34 Blood Pressure Mean 90 03/31/25 10:34 Blood Pressure Position Sitting 03/31/25 10:34 Pulse Oximetry 97 03/31/25 10:34 Oxygen Delivery Method Room Air 03/31/25 10:34 Vital Signs Temperature 98.1 F 03/31/25 10:34 Pulse Rate 84 03/31/25 10:34 Respiratory Rate 18 03/31/25 10:34 Blood Pressure 120/75 03/31/25 10:34 Pulse Oximetry 97 03/31/25 10:34 Oxygen Delivery Method Room Air 03/31/25 10:34 Temperature 98.1 F 03/31/25 10:34 Pulse Rate 80 03/31/25 19:22 Respiratory Rate 16 03/31/25 19:22 Blood Pressure 99/66 03/31/25 19:22 Pulse Oximetry 96 03/31/25 19:22 Oxygen Delivery Method Room Air 03/31/25 19:22 Medications Administered Medications: Discontinued Medications Generic Name Dose Route Start Last Admin Trade Name Freq PRN Reason Stop Dose Admin Fentanyl 25 mcg 03/31/25 16:33 03/31/25 19:21 Fentanyl 100 Mcg/2 Ml Inj IVP 25 mcg Q2H PRN Administration Sodium Chloride 500 mls @ 1,000 mls/hr 03/31/25 10:58 03/31/25 11:52 0.9 % Sodium Chloride 500 Ml IV 03/31/25 11:27 Infused .Q30M ALLISON Infusion Ketorolac Tromethamine 15 mg 03/31/25 13:50 03/31/25 13:57 Ketorolac 15 Mg/Ml Inj IVP 03/31/25 13:51 15 mg ONCE ONE Administration Ondansetron HCl 4 mg 03/31/25 10:53 03/31/25 11:21 Ondansetron 2 Mg/Ml Inj IVP 03/31/25 10:54 4 mg ONCE ONE Administration MDM - Abdominal Pain Lab Data Attestation: I reviewed the patient's lab results. Labs: Lab Results 03/31/25 Range/Units 11:16 WBC 9.75 (4.50-11.00) K/uL RBC 4.32 (4.00-5.20) m/uL Hgb 12.5 (12.0-16.0) gm/dL Hct 38.1 (33.0-51.0) % MCV 88 (80-100) fL MCH 29 (26-34) pg MCHC 33 (32-36) gm/dL RDW Coeff of Eliza 13.3 (11.5-15.5) % Plt Count 337 (140-440) K/uL Neut % (Auto) 80.5 H (42.0-72.0) % Lymph % (Auto) 12.8 L (20-44) % Toole % (Auto) 6.3 (0.0-11.0) % Eos % (Auto) 0.2 (0.0-7.0) % Baso % (Auto) 0.1 (0.0-3.0) % Neut # (Auto) 7.80 H (1.7-7.0) K/uL Lymph # (Auto) 1.20 (0.90-2.90) K/uL Toole # (Auto) 0.60 (0.00-0.90) K/UL Eos # (Auto) 0.02 (0.00-0.50) K/uL Baso # (Auto) 0.01 (0.00-0.30) K/uL Abs Immat Gran (auto) 0.01 (0.00-0.30) K/uL Imm/Tot Granulo (auto) 0.1 % Sodium 137 (135-149) mmol/L Potassium 3.6 (3.6-5.1) mmol/L Chloride 105 (96-114) mmol/L Carbon Dioxide 27 (20-32) mmol/L Anion Gap 5 L (7-15) mEq/L BUN 18 (5-24) mg/dL Creatinine 0.7 (0.5-1.5) mg/dL Estimated GFR 106 ml/min Glucose 107 (60-115) mg/dL Lactate 0.8 (0.5-1.9) mmol/L Calcium 9.4 (8.4-10.6) mg/dL Total Bilirubin 0.4 (0.1-1.5) mg/dL AST 30 (12-35) U/L ALT 10 (4-35) U/L Alkaline Phosphatase 71 (40-150) U/L C-Reactive Protein < 0.5 L (0.5-1.0) mg/dL Total Protein 7.4 (6.0-8.3) g/dL Albumin 4.3 (3.3-5.0) g/dL Lipase 93 (23-300) U/L Imaging Data CT scan - abdomen: Attestation: I have reviewed the pertinent imaging results. Radiologist's impression: Patient: TC OLSEN Facility:?[facility] RIS Patient ID:?[id number] Site Patient ID:?[id number]. Site :?[id number] Study:?CT-Abdomen/Pelvis WITH 64 CC ISOVUE 370-03/31/2025 12:20:50 PM Ordering Physician:Lilliam Reyez Final Report: INDICATION: Crohn`s. History of colectomy with J-pouch. Nausea and vomiting. TECHNIQUE: CT abdomen and pelvis acquired with 100 cc Omnipaque 350 IV contrast. COMPARISON: None. FINDINGS: Mild bibasilar ground-glass, likely atelectasis. The liver is unremarkable. The gallbladder is partially distended. There does appear to be trace fluid adjacent to the gallbladder and along the undersurface of the right latanya liver. This is favored to be reactive and due to the bowel. No definite evidence of acute cholecystitis. No biliary ductal dilatation. The spleen is unremarkable. The pancreas is unremarkable. The adrenal glands are unremarkable. The kidneys are unremarkable. Urinary bladder is partially distended. The patient is status post colectomy with J-pouch and ileoanal anastomosis. The J-pouch is dilated containing stool. There is acute narrowing of the distal ileum with transition point seen (series 2, image 88) there is upstream dilated small bowel loops as evidence for a small bowel obstruction. There are nondilated loops of jejunum noted within left abdomen. The stomach is partially distended. No free air. Again noted is a small amount of pericholecystic fluid. There is otherwise no significant ascites. No gross mesenteric edema. Subcentimeter mesenteric lymph nodes are noted. Aorta is normal in caliber. Uterus is unremarkable. IMPRESSION: 1. Postoperative changes from colectomy with ileoanal anastomosis. The J pouch is distended. There is acute narrowing of the distal ileum within the upper pelvis with transition to dilated loops of proximal small bowel. This is evidence for a small bowel obstruction and possibly due to internal hernia. Surgical consultation recommended. 2. Partially distended gallbladder. Mild pericholecystic fluid with no definite evidence of acute cholecystitis. Please note that all CT scans at this facility use dose modulation, iterative reconstruction, and/or weight-based dosing when appropriate to reduce radiation dose to as low as reasonably achievable. Dictated by Sameer Hager MD @ 03/31/2025 12:48:11 PM (Electronic Signature) Discharge Plan Discharge Clinical Impression: Small bowel obstruction Patient Disposition: Xfer [facility] Discharge Location: [facility] Condition: Stable Prescriptions: No Action norethindrone ac-eth estradiol [08/26 (21)] 1-20 mg-mcg tablet 1 tab PO DAILY ondansetron 4 mg tablet,disintegrating 4 mg PO Q6H Qty: 20 0RF Stand Alone Forms: My[facility] Info Instructions
--- NOTE | 2025-03-31 10:53 | CRLHL7_ITS ---
For Patients: As a result of the Century Cures Act, medical imaging exams and procedure reports are released immediately into your electronic medical record. You may view this report before your referring provider. If you have questions, please contact your health care provider. INDICATION: Crohn`s. History of colectomy with J-pouch. Nausea and vomiting. TECHNIQUE: CT abdomen and pelvis acquired with 100 cc Omnipaque 350 IV contrast. COMPARISON: None. FINDINGS: Mild bibasilar ground-glass, likely atelectasis. The liver is unremarkable. The gallbladder is partially distended. There does appear to be trace fluid adjacent to the gallbladder and along the undersurface of the right latanya liver. This is favored to be reactive and due to the bowel. No definite evidence of acute cholecystitis. No biliary ductal dilatation. The spleen is unremarkable. The pancreas is unremarkable. The adrenal glands are unremarkable. The kidneys are unremarkable. Urinary bladder is partially distended. The patient is status post colectomy with J-pouch and ileoanal anastomosis. The J-pouch is dilated containing stool. There is acute narrowing of the distal ileum with transition point seen (series 2, image 88) there is upstream dilated small bowel loops as evidence for a small bowel obstruction. There are nondilated loops of jejunum noted within left abdomen. The stomach is partially distended. No free air. Again noted is a small amount of pericholecystic fluid. There is otherwise no significant ascites. No gross mesenteric edema. Subcentimeter mesenteric lymph nodes are noted. Aorta is normal in caliber. Uterus is unremarkable. IMPRESSION: 1. Postoperative changes from colectomy with ileoanal anastomosis. The J pouch is distended. There is acute narrowing of the distal ileum within the upper pelvis with transition to dilated loops of proximal small bowel. This is evidence for a small bowel obstruction and possibly due to internal hernia. Surgical consultation recommended. 2. Partially distended gallbladder. Mild pericholecystic fluid with no definite evidence of acute cholecystitis. Please note that all CT scans at this facility use dose modulation, iterative reconstruction, and/or weight-based dosing when appropriate to reduce radiation dose to as low as reasonably achievable. Dictated by Sameer Hager MD @ 03/31/2025 12:48:11 PM (Electronically Signed)
[2025-03-31 10:54] VITALS: O2SAT 97
[2025-03-31] MEDS: 0.9 % SODIUM CHLORIDE 500 ML 500 ML 1000 ML IV (11:21)
[2025-03-31] MEDS: ONDANSETRON 2 MG/ML inj 4 MG IVP (11:21)
[2025-03-31 11:27] LABS: Lactate* 0.8 mmol/L (0.5-1.9)
[2025-03-31 11:31] LABS: Hematocrit 38.1 % (33.0-51.0); Hemoglobin* 12.5 gm/dL (12.0-16.0); Immature Granulocytes Abs Auto 0.01 K/uL (0.00-0.30); Immature Granulocytes Pct Auto 0.1 %; Lymphocytes Absolute Auto 1.20 K/uL (0.90-2.90); Mean Corpuscular HGB Conc 33 gm/dL (32-36); Mean Corpuscular Hemoglobin 29 pg (26-34); Mean Corpuscular Volume 88 fL (80-100); RDW Coefficient of Variation % 13.3 % (11.5-15.5); Red Blood Count 4.32 m/uL (4.00-5.20); Slide Review Reflex No; White Blood Count* 9.75 K/uL (4.50-11.00)
[2025-03-31 11:42] LABS: Albumin* 4.3 g/dL (3.3-5.0); Chloride* 105 mmol/L (96-114); Potassium* 3.6 mmol/L (3.6-5.1); Sodium* 137 mmol/L (135-149)
[2025-03-31 11:44] LABS: Blood Urea Nitrogen* 18 mg/dL (5-24); Creatinine* 0.7 mg/dL (0.5-1.5); Estimated Glomerular Filt Rate 106 ml/min
[2025-03-31 11:45] LABS: Alanine Aminotransferase* 10 U/L (4-35); Alkaline Phosphatase* 71 U/L (40-150); Anion Gap 5 mEq/L (7-15); Aspartate Amino Transferase* 30 U/L (12-35); Bilirubin Total* 0.4 mg/dL (0.1-1.5); Carbon Dioxide* 27 mmol/L (20-32); Total Protein* 7.4 g/dL (6.0-8.3)
[2025-03-31 11:46] LABS: Calcium* 9.4 mg/dL (8.4-10.6); Glucose* 107 mg/dL (60-115)
[2025-03-31 19:22] VITALS: BP 99/66; PULSE 80; RESP 16; O2SAT 96
== END 2025-03-31 19:54 | disposition short-term general hospital (02) ==
PROVIDERS: Emergency Provider Family Medicine
DX: K56.609 Unspecified intestinal obstruction, unspecified as to partial versus complete obstruction (principal)
CPT/HCPCS: 36415; 74177; 80053; 83605; 83690; 85025; 86140; 94761; 96374; 96375; 96376; 99285; J1885; J2405; J3010; J7030; Q9967

== ENCOUNTER 2025-03-31 19:42 | Outpatient (CLI) | payer OTHER, SELFPAY | END 2025-03-31 19:43 | disposition home or self-care (01) | LOC: AMB 04-03 09:55 | PROVIDERS: Visit Provider Emergency Medicine Emergency Medical Services | DX: K56.609 Unspecified intestinal obstruction, unspecified as to partial versus complete obstruction (principal) | CPT/HCPCS: A0425; A0426 ==